=== PATIENT | female | born 1970 | race Two or more races ===

== ENCOUNTER → 2022-05-07 14:02 | Outpatient (BNVA) | payer OTHER, SELFPAY | PROVIDERS: PCP Internal Medicine; Visit Provider Internal Medicine Rheumatology | DX: M47.812 Spondylosis without myelopathy or radiculopathy, cervical region (principal); M47.816 Spondylosis without myelopathy or radiculopathy, lumbar region; M79.7 Fibromyalgia | CPT/HCPCS: 99202 ==

== ENCOUNTER 2022-05-16 11:12 | Outpatient (REF) | payer OTHER, SELFPAY ==
[2022-05-16 14:38] LABS: MANUAL DIFF FLAG NO
[2022-05-16 14:50] LABS: Basophils Absolute Auto 0.1 X10*3/uL (0.0-0.2); Eosinophils Absolute Auto 0.3 X10*3/uL (0.0-0.4); Eosinophils Percent Auto 6.5 % (0-4); Hematocrit 40.7 % (37.0-47.0); Hemoglobin 13.3 g/dl (12.0-16.0); Lymphocytes Absolute Auto 1.1 X10*3/uL (1.2-4.9); Lymphocytes Percent Auto 23.1 % (20-40); Mean Corpuscular HGB Conc 32.7 g/dl (31.0-35.0); Mean Corpuscular Hemoglobin 29.2 pg (27.0-33.0); Mean Corpuscular Volume 89.3 fL (80.0-98.0); Mean Platelet Volume 10.9 fL (9.4-12.3); Monocytes Absolute Auto 0.4 X10*3/uL (0.1-1.2); Monocytes Percent Auto 9.2 % (2-11); Neutrophils Absolute Auto 2.9 x10*3/uL (2.0-8.3); Neutrophils Percent Auto 60.2 % (45-73); Platelet Count 225 X10*3/uL (160-400); Red Blood Count 4.56 X10*6/uL (4.20-5.50); Red Cell Distribution Width 12.3 % (11.0-16.0); White Blood Count 4.8 X10*3/uL (4.8-10.8)
[2022-05-16 15:12] LABS: C Reactive Protein 0.19 mg/dL (< or = 0.50)
[2022-05-16 15:29] LABS: Erythrocyte Sedimentation Rate 7 MM/HR (0-20)
== END 2022-05-16 11:13 | disposition home or self-care (01) ==
LOC: HO.HMGCLDS 11:12
PROVIDERS: PCP Internal Medicine; Visit Provider Internal Medicine Rheumatology
DX: M79.7 Fibromyalgia (principal)
CPT/HCPCS: 36415; 85025; 85652; 86140